=== PATIENT | female | born 1950 | race Caucasian/White ===

== ENCOUNTER 2024-08-27 16:24 | Emergency (ER) | payer MEDICARE, SELFPAY ==
[2024-08-27 16:58] VITALS: BP 125/79; PULSE 86; RESP 16; TEMP 36.8; O2SAT 100
--- NOTE | 2024-08-27 17:08 | ED.URI ---
HPI - URI/Sore Throat General Chief Complaint: Upper Respiratory Infection Stated Complaint: TIRED/BODY ACHES/SORE THROAT/COUGH Time Seen by Provider: 08/27/24 17:08 Source: patient Mode of arrival: ambulatory Limitations: no limitations History of Present Illness HPI Narrative: 74-year-old female presents with complaint of 2 days of low-grade fever, fatigue, headache. Began having mild congestion and cough started yesterday. Cough is nonproductive. Symptoms for approximately 4 days. Afebrile today. Taking ibuprofen, no other medications to treat symptoms. Called her PCP today regarding symptoms and was told to get RSV, flu and COVID testing. No chest pain or shortness breath. All systems reviewed and negative except as noted above. Related Data Home Medications Medication Instructions Recorded Confirmed azelaic acid 15 % topical gel 1 applic topical DIRECTED 08/27/24 08/27/24 escitalopram oxalate 10 mg tablet 10 mg PO DAILY 08/27/24 08/27/24 levothyroxine 100 mcg tablet 100 mcg PO DIRECTED 08/27/24 08/27/24 (Synthroid) valacyclovir 1 gram tablet 1 mg PO DIRECTED 08/27/24 08/27/24 Allergies Allergy/AdvReac Type Severity Reaction Status Date / Time ciprofloxacin Allergy Unknown Hives Verified 08/27/24 16:48 Review of Systems Review of Systems: CONSTITUTIONAL: Reports fever, chills. Denies sweats. EYES: Denies visual changes, redness, or discharge. ENT: Reports rhinorrhea, congestion, sore throat. Denies otalgia. CARDIOVASCULAR: Denies chest pain, palpitations, or edema. RESPIRATORY: Reports cough. Dyspnea. GASTROINTESTINAL: Denies abdominal pain, nausea, vomiting, or diarrhea. GENITOURINARY: Denies dysuria or hematuria. SKIN: Denies rash or itching. MUSCULOSKELETAL: Denies back pain, joint pain, or myalgia. NEUROLOGIC: Reports headache. Denies numbness, or weakness. PSYCHIATRIC: Denies anxiety or depression. All other systems reviewed are negative, except as documented in HPI. PMFSH Comments At time of signature, agree with nursing past medical, surgical, social and family history. There is no relevant family history pertinent to the presenting complaint. Exam Narrative: GENERAL: This is a well-nourished, well-developed patient, in no apparent distress. HEAD: normocephalic, atraumatic. EYES: PERRL. Sclera clear/white. Vision is grossly intact. EARS: External ears normal, auditory canals clear and without drainage, TMs normal without perforation. Hearing grossly intact. NOSE: External nose normal with clear nasal drainage, mild congestion THROAT: Mucous membranes moist, erythema with postnasal drainage. NECK: Neck supple, non-tender without lymphadenopathy, masses or thyromegaly. CARDIOVASCULAR: Regular rate and rhythm without murmurs, gallops, or rubs. RESPIRATORY: Clear to auscultation. Breath sounds equal bilaterally. No wheezes, rales, or rhonchi. SKIN: warm, Dry, intact with no suspicious lesions or rash, good texture and turgor. NEURO: awake, alert, and oriented to person, place and time. There were no obvious focal neurologic abnormalities. EXTREMITIES: No joint tenderness, effusion, or edema noted. Course Course Level of Care: Express Care Visit Vital Signs Vital signs: Vital Signs Temperature 36.8 C 08/27/24 16:58 Pulse Rate 86 08/27/24 16:58 Respiratory Rate 16 08/27/24 16:58 Blood Pressure 125/79 08/27/24 16:58 Pulse Oximetry 100 08/27/24 16:58 Oxygen Delivery Room Air 08/27/24 16:58 Temperature 36.8 C 08/27/24 16:58 Pulse Rate 86 08/27/24 16:58 Respiratory Rate 16 08/27/24 16:58 Blood Pressure 125/79 08/27/24 16:58 Pulse Oximetry 100 08/27/24 16:58 Oxygen Delivery Room Air 08/27/24 16:58 Reviewed MDM - URI/Sore Throat MDM Narrative Medical decision making narrative: Negative strep, COVID and influenza. RSV PCR ordered. Lungs clear to auscultation. Patient well-appearing, nontoxic. Explain to patient that symptoms are viral. Take [id number] medications to treat symptoms. Patient is aware of diagnosis, understands and agrees to treatment plan. Anticipatory guidance given. Patient agrees to follow-up as directed and is aware of reasons to seek care at the emergency department. Portions of this record may have been created with voice recognition software Differential Diagnosis Differential diagnosis: Likely upper respiratory infection, sinusitis, viral infection, influenza and pharyngitis Discharge Plan Discharge Clinical Impression: Viral upper respiratory tract infection with cough Patient Disposition: Home, Self-Care Condition: Stable Instructions: Upper Respiratory Infection (ED) Additional Instructions: Your COVID, influenza and strep test were negative today. A strep culture was ordered and results will take 24-48 hours. If your strep culture is positive we will call you at that time and prescribed an antibiotic. Your RSV test was sent out and will take 24 to 48 hours. Your symptoms are viral and may last 10-14 days. Taking ajjq-eiu-bplwers medication to treat her symptoms such as DayQuil NyQuil cold and flu. Drink at least 64 oz of water a day. Drink hot tea with honey to soothe throat and treat cough. Place cool mist humidifier in bedroom where you sleep. Follow-up with your primary care physician if symptoms are not improving. Prescriptions: No Action valacyclovir 1 gram tablet 1 mg PO DIRECTED levothyroxine [Synthroid] 100 mcg tablet 100 mcg PO DIRECTED escitalopram oxalate 10 mg tablet 10 mg PO DAILY azelaic acid 15 % gel 1 applic TOPICAL DIRECTED Follow-up/Referrals: Jorge L,Beba Leon [Other] Time of Disposition: 17:17
[2024-08-27 17:34] LABS: EDCOVIDSCREEN Negative (Negative); EDINFLUASCREEN Negative (Negative); EDINFLUBSCREEN Negative (Negative); EDSTREPNEGPOS1 Negative (Negative)
[2024-08-27 19:55] LABS: RSV RNA, RT-PCR Negative (Negative)
== END 2024-08-27 17:22 | disposition home or self-care (01) ==
PROVIDERS: Emergency Provider Nurse Practitioner Family
DX: J06.9 Acute upper respiratory infection, unspecified (principal); R05.9 Cough, unspecified; Z20.822 Contact with and (suspected) exposure to COVID-19
CPT/HCPCS: 87081; 87426; 87634; 87804; 87880; 99203; G0463

== ENCOUNTER 2024-09-04 08:55 | Emergency (ER) | payer MEDICARE, SELFPAY ==
[2024-09-04] VITALS (7 sets, daily range): BP systolic 101–143; BP diastolic 75–84; PULSE 67–75; RESP 14–18; TEMP 36.3–36.8; O2SAT 99–100
--- NOTE | ~2024-09-04 | CT_ITS ---
EXAMINATION: CT chest abdomen pelvis w con DATE: 09/04/2024 12:48 INDICATION: 2 weeks of chest pain, respiratory symptoms and urinary symptoms TECHNIQUE: Computed tomography (CT) of the chest, abdomen, and pelvis was performed with 100 mL Omnip aque-350 intravenous contrast. Automated exposure control and iterative reconstruction technique were employed. The dose-length product was 441.99 mGy-cm. COMPARISON: None FINDINGS: CHEST CT: Minimal dependent atelectasis in the right upper and bilateral lower lobes. No pneumonia, pulmonary e kevan, pleural effusion or pneumothorax. Heart size is normal. No pericardial effusion. Thoracic aorta is normal in caliber with no dissection. No pathologically enlarged thoracic lymphadenopathy. Small sliding-type hiatal hernia. Moderate thoracic spondylosis. ABDOMEN/PELVIS CT: 8 mm flash filling hemangioma at segment IVb of the liver. Gallbladder, spleen, pancreas, bilateral a drenal glands and kidneys are normal. Moderate amount of stool scattered throughout the colon. Small bowel and appendix are normal. Bladder, uterus and bilateral adnexa are unremarkable. Very small amou nt of likely physiologic free fluid in the cul-de-sac. No abscess or free intraperitoneal gas. Mild t o moderate lumbar spondylosis. IMPRESSION: 1. No acute cardiopulmonary disease. 2. Very small amount of likely physiologic free fluid in the cul-de-sac. No acute intra-abdominal/pel kim process. 2. Small sliding-type hiatal hernia. Reviewed, dictated and finalized at location A. STER OR DAMAGE CONTROL SPECIALIST IMPRESSION: 1. No acute cardiopulmonary disease. 2. Very small amount of likely physiologic free fluid in the cul-de-sac. No acu te intra-abdominal/pelvic process. 2. Small sliding-type hiatal hernia.
--- NOTE | ~2024-09-04 | XR_ITS ---
Clinical Indication: Chest pain PA and lateral views of the chest: Comparison: 11/26/2015 Findings: The lungs are clear, without evidence of focal consolidation or pleural effusion. Cardiome diastinal silhouette is within normal limits. Bones and soft tissues are unremarkable. Impression: Normal chest. Reviewed, dictated and finalized at location . EMIC ADMINISTRATOR Impression: Normal chest.
--- NOTE | 2024-09-04 08:58 | ECG_ITS ---
Test Date: 2024-09-04 09:04:19 Measurements Intervals Picher Rate: 69 P: 44 MO: 116 QRS: 38 QRSD: 97 T: 33 QT: 377 QTc: 405 Interpretive Statements SINUS RHYTHM WITH SHORT MO INTERVAL No previous ECG available for comparison Electronically Signed On 09-04-2024 15:27:06 [employer] by Fred Valles M.D.
[2024-09-04 09:16] LABS: Basophils Percent Auto 0.2 % (0.2-1.2); Eosinophils Percent Auto 0.1 % (0-4.4); Hematocrit 38.5 % (37.0-47.0); Hemoglobin 12.7 g/dL (12.0-15.0); Immature Granulocyte Absolute 0.06 K/mm3 (0.00-0.031); Immature Granulocyte Percent A 0.5 % (0-0.5); Lymphocytes Absolute Auto 1.76 K/mm3 (0.9-3.2); Lymphocytes Percent Auto 14.2 % (18.3-44.2); Mean Corpuscular Hemoglobin 29.1 pg (26-34); Mean Corpuscular Volume 88.3 fl (80-100); Mean Platelet Volume 9.4 fl (7.4-10.4); Monocytes Absolute Auto 1.1 K/mm3 (0.1-0.6); Monocytes Percent Auto 8.7 % (2.6-8.5); Neutrophils Absolute Auto 9.5 K/mm3 (1.3-6.7); Neutrophils Percent Auto 76.3 % (45.5-73.1); Platelet Count Result 289 k/mm3 (150-375); Red Blood Count 4.36 M/mm3 (4.2-5.4); Red Cell Distribution Width 13.2 % (11.5-14.5); White Blood Count 12.4 K/mm3 (4.5-10.0)
--- NOTE | 2024-09-04 09:22 | ED_ITS ---
HPI - General Adult General Chief complaint: Unspecified Stated complaint: face is puffy and red Time Seen by Provider: 09/04/24 09:13 History of Present Illness HPI narrative: Patient is a 74-year-old female who presents to the ER with a 2 week history of being sick. She reports she has gone to urgent care twice during that time due to cough, fatigue, and mild chest tightness. Patient was put on doxycycline and a steroid 2 days ago by the provider at urgent care. This m orning patient woke up with a red puffy face and jaw pain. Patient reports she had a history of a thyroidectomy in 1999 and takes medication daily. Her only other medical history is high blood pressure and depression. Patient denies shortness of breath, fevers, urinary symptoms. Related Data Home Medications Medication Instructions Recorded Confirmed azelaic acid 15 % topical gel 1 applic topical DIRECTED 08/27/24 08/27/24 escitalopram oxalate 10 mg tablet 10 mg PO DAILY 08/27/24 08/27/24 levothyroxine 100 mcg tablet 100 mcg PO DIRECTED 08/27/24 08/27/24 (Synthroid) valacyclovir 1 gram tablet 1 mg PO DIRECTED 08/27/24 08/27/24 Allergies Allergy/AdvReac Type Severity Reaction Status Date / Time ciprofloxacin Allergy Unknown Hives Verified 09/04/24 10:52 Review of Systems Review of Systems: All systems reviewed & are unremarkable except as noted in HPI and below Exam Narrative: GENERAL: Well appearing, well-nourished, non-toxic, in no acute distress. HEAD: Normocephalic, atraumatic. NECK: Supple. No adenopathy, no masses. RESPIRATORY: Airway patent, respirations nonlabored. Clear to auscultation miracle aterally, no rales, rhonchi, wheezing. CARDIOVASCULAR: Regular rate and rhythm without murmurs, rubs, or gallops. Peripheral pulses 2+ and equal bilaterally. ABDOMINAL: Soft, nontender, nondistended, no hepatosplenomegaly. Normoactive BS. MUSCULOSKELETAL: Moves all extremities. Strength/ROM intact without gross deformities. SKIN: Warm, dry, normal color. No rashes. NEURO: A&O X3. Speech clear. Cranial nerves II-XII grossly intact. No ataxic movements. PSYCHIATRIC: Appropriate mood and affect. Normal interaction. Course Vital Signs Vital signs: Vital Signs Temperature 36.3 C L 09/04/24 09:00 Pulse Rate 75 09/04/24 09:00 Respiratory Rate 18 09/04/24 09:00 Blood Pressure 101/83 09/04/24 09:00 Pulse Oximetry 100 09/04/24 09:00 Oxygen Delivery Room Air 09/04/24 09:00 Temperature 36.8 C 09/04/24 14:15 Pulse Rate 70 09/04/24 14:15 Respiratory Rate 15 09/04/24 14:15 Blood Pressure 123/75 09/04/24 14:15 Pulse Oximetry 100 09/04/24 14:15 Oxygen Delivery Room Air 09/04/24 09:00 Medical Decision Making MDM Narrative Medical decision making narrative: Patient is a 74-year-old female who presents to the ER with a 2 week history of being sick. She reports she has gone to urgent care twice during that time due to cough, fatigue, and mild chest tightness. Patient was put on doxycycline and a steroid 2 days ago by the provider at urgent care. This morning patient woke up with a red puffy face and jaw pain. Patient reports she had a history of a thyroidectomy in 1999 and takes medication daily. Her only other medical history is high blood pressure and depression. Patient denies shortness of breath, fevers, urinary symptoms. Labs Ordered: CBC, CMP, d. dimer, magnesium, lactic acid, BNP, urinalysis, blood cultures, troponin Imaging Ordered: CT chest/abdomen/pelvis with contrast Results: Pt's CBC indicated a white blood cell count of 12.4. Her CMP indicated a BUN of 34, creatinine of 1.6, GFR 32. Patient's BNP was 1030. Her urinalysis indicated 1+ blood, 1+ leukocytes, white blood cells of 6 to 10. Her chest x-ray indicated The lungs are clear, without evidence of focal consolidation or pleural effusion. Cardiomediastinal silhouette is within normal limits. Bones and soft tissues are unremarkable. Her CT scan indicated 1. No acute cardiopulmonary disease. 2. Very small amount of likely physiologic free fluid in the cul-de-sac. No acute intra-abdominal/pelvic process. 3. Small sliding- type hiatal hernia. Diagnosis: Urinary tract infection with acute kidney injury, mild dehydration Patient Education/Shared MDM: Results of blood work and imaging shared with patient. Risks and benefits of GUS shared with patient. She was in agreement for plan to discharge home and follow-up with her primary care provider. Her antibiotics will be changed from doxycycline to a different oral antibiotic. Patient educated extensively on the importance of staying hydrated upon dis charge home. She was also encouraged to follow-up with her PCP regarding her elevated BNP and GUS. Once again, patient verbalized understanding and is in agreement plan. Differential Diagnosis Differential Diagnosis: acute kidney injury, pyelonephritis, urinary tract infection, dehydration Vital Signs Vital Signs: Vital Signs Temperature 36.3 C L 09/04/24 09:00 Pulse Rate 75 09/04/24 09:00 Respiratory Rate 18 09/04/24 09:00 Blood Pressure 101/83 09/04/24 09:00 Pulse Oximetry 100 09/04/24 09:00 Oxygen Delivery Room Air 09/04/24 09:00 Temperature 36.8 C 09/04/24 14:15 Pulse Rate 70 09/04/24 14:15 Respiratory Rate 15 09/04/24 14:15 Blood Pressure 123/75 09/04/24 14:15 Pulse Oximetry 100 09/04/24 14:15 Oxygen Delivery Room Air 09/04/24 09:00 Lab Data Lab results reviewed: Yes I reviewed the patient's lab results. 09/04/24 09:06 09/04/24 09:06 Labs: Lab Results 09/04/24 09/04/24 09/04/24 Range/Units 09:06 11:37 11:38 WBC 12.4 H (4.5-10.0) K/mm3 RBC 4.36 (4.2-5.4) M/mm3 Hgb 12.7 (12.0-15.0) g/dL Hct 38.5 (37.0-47.0) % MCV 88.3 (80-100) fl MCH 29.1 (26-34) pg MCHC 33.0 (32-36) g/dl RDW 13.2 (11.5-14.5) % Plt Count 289 (150-375) k/mm3 MPV 9.4 (7.4-10.4) fl Immature Gran % (Auto) 0.5 (0-0.5) % Neut % (Auto) 76.3 H (45.5-73.1) % Lymph % (Auto) 14.2 L (18.3-44.2) % [place] % (Auto) 8.7 H (2.6-8.5) % Eos % (Auto) 0.1 (0-4.4) % Baso % (Auto) 0.2 (0.2-1.2) % Lymph # (Auto) 1.76 (0.9-3.2) K/mm3 [place] # (Auto) 1.1 H (0.1-0.6) K/mm3 Eos # (Auto) 0.0 (0-0.3) K/mm3 Baso # (Auto) 0.0 (0.0-0.1) K/mm3 Abs Immat Gran (auto) 0.06 H (0.00-0.031) K/mm3 Absolute Neuts (auto) 9.5 H (1.3-6.7) K/mm3 Absolute Nucleated RBC 0.000 (0.0-0.012) K/mm3 Nucleated RBC % 0.0 (0.0-0.2) % PT 12.1 (11.1-14.7) Seconds INR 0.9 APTT 23.8 (22.3-36.8) Seconds D-Dimer < 0.27 (<0.48) ug/mL Sodium 138 (137-145) mmol/L Potassium 3.7 (3.4-5.0) mmol/L Chloride 103 (98-107) mmol/L Carbon Dioxide 30 (22-30) mmol/L Anion Gap 5 (4-12) mmol/L BUN 34 H (7-17) mg/dL Creatinine 1.60 H (0.7-1.0) mg/dL Estim Creat Clear Calc Not Reportable Estimated GFR 32 L (59 - ) Glucose 90 (65-110) mg/dL Lactic Acid 1.1 (0.7-2.0) mmol/L Calcium 9.7 (8.4-10.2) mg/dL Magnesium 2.2 (1.6-2.3) mg/dL Total Bilirubin 0.5 (0.2-1.3) mg/dL AST 34 (14-36) U/L ALT 21 (6-35) U/L Alkaline Phosphatase 72 (38-126) U/L Troponin I < 0.012 < 0.012 (0.000-0.034) ng/mL NT-Pro-B Natriuret Pep 1030 H (19.9-100) pg/mL Total Protein 7.0 (6.3-8.2) g/dL Albumin 4.3 (3.5-5.1) g/dL Lipase 96 (23-300) U/L Urine Color Yellow (Yellow) Urine Appearance Clear (Clear) Urine pH 5.5 (5.0-9.0) Ur Specific [place] 1.013 (1.001-1.035) Urine Protein Negative (Negative) mg/dL Urine Glucose (UA) Negative (Negative) mg/dL Urine Ketones Negative (Negative) mg/dL Ur Blood (Man) 1+ H (Negative) Urine Nitrate Negative (Negative) Urine Bilirubin Negative (Negative) Urine Urobilinogen 0.2 (<2.0) mg/dL Leukocyte Esterase Rfl 1+ H (Negative) CLARISSA/UL Urine RBC 0-2 (0-2) /hpf Urine WBC 6-10 H (0-3) /hpf Ur Squamous Epith Cells Few (Few) /hpf Urine Bacteria None seen /hpf Urine Casts 3-5 Imaging Data Attestation: I personally reviewed and interpreted this imaging study as follows: Radiologist's impression: Impressions Chest X-Ray 09/04/24 10:06 Impression: Normal chest. Chest/Abdomen/Pelvis CT 09/04/24 12:57 IMPRESSION: 1. No acute cardiopulmonary disease. 2. Very small amount of likely physiologic free fluid in the cul-de-sac. No acute intra-abdominal/pelvic process. 2. Small sliding-type hiatal hernia. Discharge Plan Discharge Clinical Impression: Urinary tract infection, Acute kidney injury, Dehydration, mild Patient Disposition: Home, Self-Care Condition: Stable Instructions: Antibiotic Form, Dehydration (ED), Acute Kidney Injury (DC), Urinary Tract Infection in Women (ED) Additional Instructions: Patient is in agreement with current treatment plan. All questions answered. Vital signs stable at time of discharge. Please return to the ER with an worsening symptoms. Follow-up with primary care provider in the next 2-3 days. Take all medications as prescribed. Prescriptions: New sulfamethoxazole-trimethoprim [Bactrim DS] 800-160 mg tablet 1 tablet PO Q12H 5 Days Qty: 10 0RF No Action valacyclovir 1 gram tablet 1 mg PO DIRECTED levothyroxine [Synthroid] 100 mcg tablet 100 mcg PO DIRECTED escitalopram oxalate 10 mg tablet 10 mg PO DAILY azelaic acid 15 % gel 1 applic TOPICAL DIRECTED Follow-up/Referrals: PHYSICIAN NOT ON STAFF,NONSTAFF [Non-Staff] - Time of Disposition: 15:04
[2024-09-04 09:28] LABS: Alanine Aminotransferase 21 U/L (6-35); Albumin Level 4.3 g/dL (3.5-5.1); Alkaline Phosphatase 72 U/L (38-126); Anion Gap 5 mmol/L (4-12); Aspartate Amino Transferase 34 U/L (14-36); Bilirubin,Total 0.5 mg/dL (0.2-1.3); Blood Urea Nitrogen 34 mg/dL (7-17); Calcium 9.7 mg/dL (8.4-10.2); Carbon Dioxide 30 mmol/L (22-30); Chloride 103 mmol/L (98-107); Estimated Glomerular Filt Rate 32; Glucose 90 mg/dL (65-110); Lipase 96 U/L (23-300); Potassium 3.7 mmol/L (3.4-5.0); Sodium 138 mmol/L (137-145)
[2024-09-04 09:29] LABS: INR 0.9; Prothrombin Time 12.1 Seconds (11.1-14.7)
[2024-09-04 09:30] LABS: Partial Thromboplastin Time 23.8 Seconds (22.3-36.8)
[2024-09-04 09:40] LABS: Troponin I < 0.012 ng/mL (0.000-0.034)
[2024-09-04] MEDS: ASPIRIN 81 MG CHEWABLE TABLET 324 MG PO (10:48)
[2024-09-04] MEDS: methylPREDNISolone SOD SUCC 125 MG VIAL IV PUSH (11:55)
[2024-09-04] MEDS: diphenhydrAMINE HCl INJ 50 MG/ML VIAL 25 MG IV PUSH (11:56)
[2024-09-04] MEDS: SODIUM CHLORIDE 0.9% IV 1,000 ML 999 ML IV CONT (11:56)
[2024-09-04 11:58] LABS: Add Urine Microscopic? YES; Appearance Urine Clear (Clear); Bacteria Urine None Seen /hpf; Bilirubin Urine Negative (Negative); Blood Urine 1+ (Negative); Color Urine Yellow (Yellow); Glucose Urine UA Negative (Negative); Ketones Urine Negative (Negative); Lactic Acid Reflex 1.1 mmol/L (0.7-2.0); Leukocyte Esterase Ur 1+ LEU/UL (Negative); Magnesium 2.2 mg/dL (1.6-2.3); Nitrate Urine Negative (Negative); Protein Urine Negative (Negative); RBC Urine 0-2 /hpf (0-2); Specific Grav Ur 1.013 (1.001-1.035); Squamous Epithelial Cell Urine Few /hpf (Few); Urobilinogen Urine 0.2 mg/dL (<2.0); pH Urine 5.5 (5.0-9.0)
[2024-09-04 12:02] LABS: D Dimer < 0.27 ug/mL (<0.48)
[2024-09-04 12:07] LABS: NT Pro B Type Natriuretic Pept 1030 pg/mL (19.9-100)
[2024-09-04 12:11] LABS: Troponin I < 0.012 ng/mL (0.000-0.034)
[2024-09-04 15:25] LABS: Troponin I < 0.012 ng/mL (0.000-0.034)
== END 2024-09-04 15:23 | disposition home or self-care (01) ==
PROVIDERS: Emergency Medicine; Emergency Provider Registered Nurse
DX: N39.0 Urinary tract infection, site not specified (principal); N17.9 Acute kidney failure, unspecified; E86.0 Dehydration; I10 Essential (primary) hypertension; E89.0 Postprocedural hypothyroidism; F32.A Depression, unspecified; K44.9 Diaphragmatic hernia without obstruction or gangrene; Z79.899 Other long term (current) drug therapy
CPT/HCPCS: 36415; 71046; 71260; 74177; 80053; 81001; 83605; 83690; 83735; 83880; 84484; 85025; 85380; 85610; 85730; 87040; 87086; 93005; 96361; 96374; 96375; 99284; A9270; J1200; J2919; J7030; Q9967

== ENCOUNTER 2024-09-08 09:22 | Emergency (ER) | payer MEDICARE, SELFPAY ==
--- NOTE | ~2024-09-08 | CT_ITS ---
EXAMINATION: CT abdomen pelvis w con DATE: 09/08/2024 12:29 INDICATION: Abdominal pain. Nausea. TECHNIQUE: Computed tomography (CT) of the abdomen and pelvis was performed with 100 mL Omnipaque 350 intravenous contrast. Automated exposure control and iterative reconstruction technique were employe d. The dose-length product was 267.59 mGy-cm. COMPARISON: CT abdomen and pelvis 09/04/2024 FINDINGS: The visualized portions of lung bases demonstrate mild atelectasis. No pleural effusion. Th e heart size is normal. No pericardial effusion. The liver, gallbladder, spleen, pancreas, adrenal gl ands, and left kidney are normal. There are is a 6 mm cyst in right kidney. There are no dilated loop s of bowel. The appendix is normal. There are no pathologically enlarged lymph nodes. There is no cathy e intraperitoneal fluid. Left ovarian vein is enlarged, consistent with pelvic venous insufficiency. There is moderate lumbar spondylosis and mild thoracic spondylosis. There is a 12 mm sclerotic lesion in right sacral ala. IMPRESSION: 1. Pelvic venous insufficiency. 2. 12 mm sclerotic lesion in right sacral ala, which may be a hemangioma or metastatic disease. Consi juan bone scan. Reviewed, dictated and finalized at location A. 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 Pelvic venous insufficiency. 2. 12 mm sclerotic lesion in right sacral ala, which may be a hemangioma or met astatic disease. Consider bone scan.
--- NOTE | ~2024-09-08 | XR_ITS ---
EXAMINATION: XR abdomen/kub 1V DATE: 09/08/2024 10:27 INDICATION: Constipation. TECHNIQUE: A supine view of the abdomen on 2 radiographs was obtained. COMPARISON: CT abdomen and pelvis 09/04/2024 FINDINGS: There are no dilated loops of bowel. There is a moderate volume of stool in the colon. IMPRESSION: 1. Normal bowel gas pattern. Reviewed, dictated and finalized at location A. 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
[2024-09-08 09:25] VITALS: BP 131/70; PULSE 85; RESP 16; TEMP 36.6; O2SAT 100
[2024-09-08 09:55] LABS: Basophils Absolute Auto 0.1 K/mm3 (0.0-0.1); Eosinophils Absolute Auto 0.2 K/mm3 (0-0.3); Eosinophils Percent Auto 2.5 % (0-4.4); Hematocrit 44.2 % (37.0-47.0); Hemoglobin 14.4 g/dL (12.0-15.0); Immature Granulocyte Absolute 0.14 K/mm3 (0.00-0.031); Immature Granulocyte Percent A 1.8 % (0-0.5); Lymphocytes Absolute Auto 1.67 K/mm3 (0.9-3.2); Lymphocytes Percent Auto 21.9 % (18.3-44.2); Mean Corpuscular HGB Conc 32.6 g/dl (32-36); Mean Corpuscular Hemoglobin 28.7 pg (26-34); Mean Corpuscular Volume 88.2 fl (80-100); Mean Platelet Volume 9.2 fl (7.4-10.4); Monocytes Absolute Auto 0.8 K/mm3 (0.1-0.6); Monocytes Percent Auto 9.9 % (2.6-8.5); Neutrophils Absolute Auto 4.8 K/mm3 (1.3-6.7); Neutrophils Percent Auto 62.9 % (45.5-73.1); Platelet Count Result 397 k/mm3 (150-375); Red Blood Count 5.01 M/mm3 (4.2-5.4); Red Cell Distribution Width 13.2 % (11.5-14.5); White Blood Count 7.6 K/mm3 (4.5-10.0)
[2024-09-08 10:05] LABS: Alanine Aminotransferase 30 U/L (6-35); Albumin Level 4.9 g/dL (3.5-5.1); Alkaline Phosphatase 75 U/L (38-126); Anion Gap 6 mmol/L (4-12); Aspartate Amino Transferase 30 U/L (14-36); Bilirubin,Total 0.7 mg/dL (0.2-1.3); Blood Urea Nitrogen 12 mg/dL (7-17); Calcium 10.2 mg/dL (8.4-10.2); Carbon Dioxide 30 mmol/L (22-30); Chloride 103 mmol/L (98-107); Estimated CRCL calculation 38 ml/min; Estimated Glomerular Filt Rate 54; Glucose 100 mg/dL (65-110); Lipase 89 U/L (23-300); Potassium 4.3 mmol/L (3.4-5.0); Sodium 139 mmol/L (137-145)
--- NOTE | 2024-09-08 10:10 | PC.NURSE ---
Pt. aware that lab needs another urine sample. Pt. states she is unable to urinate at this time but will press her call light when she can.
--- NOTE | 2024-09-08 11:38 | ED_ITS ---
HPI - Abdominal Pain General Chief Complaint: Abdominal Pain Stated Complaint: abd pain Time Seen by Provider: 09/08/24 10:32 History of Present Illness HPI narrative: 74-year-old female presenting with abdominal pain and nausea. States has been going on for last several days. She has barely been able to eat anything. She also has not been able to have a normal bowel movement despite using enemas and suppositories. Recently treated for UTI. Related Data Home Medications Medication Instructions Recorded Confirmed azelaic acid 15 % topical gel 1 applic topical DIRECTED 08/27/24 08/27/24 escitalopram oxalate 10 mg tablet 10 mg PO DAILY 08/27/24 08/27/24 levothyroxine 100 mcg tablet 100 mcg PO DIRECTED 08/27/24 08/27/24 (Synthroid) valacyclovir 1 gram tablet 1 mg PO DIRECTED 08/27/24 08/27/24 Allergies Allergy/AdvReac Type Severity Reaction Status Date / Time ciprofloxacin Allergy Unknown Hives Verified 09/04/24 10:52 Review of Systems 2 Review of Systems: All systems reviewed & are unremarkable except as noted in HPI and below Exam 2 Narrative: GENERAL: Well-appearing, in no acute distress, pleasant cooperative HEAD: Normocephalic, atraumatic. EYES: PERRLA and EOMI. ENT: Mucous membranes moist. NECK: Supple. CHEST: No respiratory distress. HEART: Regular rate and rhythm ABDOMEN: Soft, mild diffuse tenderness EXTREMITIES: Normal range of motion. SKIN: Warm, dry, no rash. NEURO: No focal deficits. Alert and oriented x3. PSYCH: Normal mood and affect. Course Vital Signs Vital signs: Vital Signs Temperature 97.9 F 09/08/24 09:25 Pulse Rate 85 09/08/24 09:25 Respiratory Rate 16 09/08/24 09:25 Blood Pressure 131/70 09/08/24 09:25 Pulse Oximetry 100 09/08/24 09:25 Oxygen Delivery Room Air 09/08/24 09:25 Temperature 97.9 F 09/08/24 09:25 Pulse Rate 73 09/08/24 13:14 Respiratory Rate 16 09/08/24 13:14 Blood Pressure 125/71 09/08/24 13:14 Pulse Oximetry 99 09/08/24 13:14 Oxygen Delivery Room Air 09/08/24 09:25 MDM - Abdominal Pain MDM Narrative Medical decision making narrative: 74-year-old female presenting with abdominal pain, nausea, constipation. Vitals within normal limits. Exam remarkable for the above. Blood work is unremarkable. UA is not infected. CT abdomen pelvis without acute abnormalities. Patient with some recurrent nausea, she was given a dose of p.o. Zofran and she is now able to tolerate p.o.. She would like to go home which I think is reasonable. Will send in for Pepcid, Zofran, daily MiraLax. Recommend PCP follow-up. Appropriate return precautions given. Discharged in stable condition. Lab Data 09/08/24 09:48 09/08/24 09:48 Labs: Lab Results 09/08/24 09/08/24 Range/Units 09:48 11:39 WBC 7.6 (4.5-10.0) K/mm3 RBC 5.01 (4.2-5.4) M/mm3 Hgb 14.4 (12.0-15.0) g/dL Hct 44.2 (37.0-47.0) % MCV 88.2 (80-100) fl MCH 28.7 (26-34) pg MCHC 32.6 (32-36) g/dl RDW 13.2 (11.5-14.5) % Plt Count 397 H (150-375) k/mm3 MPV 9.2 (7.4-10.4) fl Immature Gran % (Auto) 1.8 H (0-0.5) % Neut % (Auto) 62.9 (45.5-73.1) % Lymph % (Auto) 21.9 (18.3-44.2) % [place] % (Auto) 9.9 H (2.6-8.5) % Eos % (Auto) 2.5 (0-4.4) % Baso % (Auto) 1.0 (0.2-1.2) % Lymph # (Auto) 1.67 (0.9-3.2) K/mm3 [place] # (Auto) 0.8 H (0.1-0.6) K/mm3 Eos # (Auto) 0.2 (0-0.3) K/mm3 Baso # (Auto) 0.1 (0.0-0.1) K/mm3 Abs Immat Gran (auto) 0.14 H (0.00-0.031) K/mm3 Absolute Neuts (auto) 4.8 (1.3-6.7) K/mm3 Absolute Nucleated RBC 0.000 (0.0-0.012) K/mm3 Nucleated RBC % 0.0 (0.0-0.2) % Sodium 139 (137-145) mmol/L Potassium 4.3 (3.4-5.0) mmol/L Chloride 103 (98-107) mmol/L Carbon Dioxide 30 (22-30) mmol/L Anion Gap 6 (4-12) mmol/L BUN 12 D (7-17) mg/dL Creatinine 1.00 (0.7-1.0) mg/dL Estim Creat Clear Calc 38 ml/min Estimated GFR 54 L (59 - ) Glucose 100 (65-110) mg/dL Calcium 10.2 (8.4-10.2) mg/dL Total Bilirubin 0.7 (0.2-1.3) mg/dL AST 30 (14-36) U/L ALT 30 (6-35) U/L Alkaline Phosphatase 75 (38-126) U/L Total Protein 8.0 (6.3-8.2) g/dL Albumin 4.9 (3.5-5.1) g/dL Lipase 89 (23-300) U/L Urine Color Yellow (Yellow) Urine Appearance Cloudy H (Clear) Urine pH 7.5 (5.0-9.0) Ur Specific [place] 1.015 (1.001-1.035) Urine Protein Negative (Negative) mg/dL Urine Glucose (UA) Negative (Negative) mg/dL Urine Ketones Negative (Negative) mg/dL Ur Blood (Man) 1+ H (Negative) Urine Nitrate Negative (Negative) Urine Bilirubin Negative (Negative) Urine Urobilinogen 0.2 (<2.0) mg/dL Leukocyte Esterase Rfl Negative (Negative) CLARISSA/UL Urine RBC 11-20 H (0-2) /hpf Urine WBC 0-5 (0-3) /hpf Ur Squamous Epith Cells None seen (Few) /hpf Urine Bacteria None seen /hpf Urine Casts 0-2 Imaging Data Radiologist's impression: ITS Impressions Abdomen X-Ray 09/08/24 10:30 IMPRESSION: 1. Normal bowel gas pattern. Abdomen/Pelvis CT 09/08/24 12:35 IMPRESSION: 1. Pelvic venous insufficiency. 2. 12 mm sclerotic lesion in right sacral ala, which may be a hemangioma or metastatic disease. Consider bone scan. Critical Care Time Critical Care Time Critical Care Time: No Discharge Plan Discharge Clinical Impression: Abdominal pain, Nausea & vomiting Patient Disposition: Still a Patient Condition: Stable Instructions: Antibiotic Form, Abdominal Pain (ED) Additional Instructions: We have started you on Pepcid for your abdominal pain as well as Zofran to be used as needed for nausea. You may use the MiraLax twice a day or as needed until you are having a normal number of bowel movements. Follow-up closely with your PCP. If your symptoms worsen or other concerning symptoms arise, please return to the ER. Prescriptions: New famotidine [Pepcid] 20 mg tablet 20 mg PO DAILY Qty: 14 0RF ondansetron 4 mg tablet,disintegrating 4 mg PO Q8H PRN (Reason: nausea and vomiting) Qty: 14 0RF polyethylene glycol 3350 [Miralax] 17 gram/dose powder 17 g PO BID Qty: 238 0RF No Action valacyclovir 1 gram tablet 1 mg PO DIRECTED levothyroxine [Synthroid] 100 mcg tablet 100 mcg PO DIRECTED escitalopram oxalate 10 mg tablet 10 mg PO DAILY azelaic acid 15 % gel 1 applic TOPICAL DIRECTED sulfamethoxazole-trimethoprim [Bactrim DS] 800-160 mg tablet 1 tablet PO Q12H 5 Days Qty: 10 0RF Follow-up/Referrals: PHYSICIAN NOT ON STAFF,NONSTAFF [Primary Care Provider] -
[2024-09-08] MEDS: ONDANSETRON INJ 4 MG/2 ML VIAL IV PUSH (11:53)
[2024-09-08] MEDS: SODIUM CHLORIDE 0.9% IV 1,000 ML 999 ML IV CONT (11:53)
[2024-09-08 11:54] LABS: Add Urine Microscopic? YES; Appearance Urine Cloudy (Clear); Bacteria Urine None Seen /hpf; Bilirubin Urine Negative (Negative); Blood Urine 1+ (Negative); Color Urine Yellow (Yellow); Glucose Urine UA Negative (Negative); Ketones Urine Negative (Negative); Leukocyte Esterase Ur Negative LEU/UL (Negative); Nitrate Urine Negative (Negative); Non Pathogenic Casts 0-2; Protein Urine Negative (Negative); Specific Grav Ur 1.015 (1.001-1.035); Squamous Epithelial Cell Urine None Seen /hpf (Few); Urobilinogen Urine 0.2 mg/dL (<2.0); WBC Urine 0-5 /hpf (0-3); pH Urine 7.5 (5.0-9.0)
--- NOTE | 2024-09-08 12:07 | PC.NURSE ---
ultrasound called at [phone] to ask if they could come do a bedside ultrasound in ED or if they needed to reschedule the patient. US will be coming down to do the bedside ultrasound.
[2024-09-08 13:14] VITALS: BP 125/71; PULSE 73; RESP 16; O2SAT 99
[2024-09-08] MEDS: FAMOTIDINE 20 MG/2 ML VIAL IV PUSH (15:48)
[2024-09-08] MEDS: ONDANSETRON HCL ODT 4 MG TABLET PO (15:48)
--- NOTE | 2024-09-08 16:18 | PC.NURSE ---
This RN went into pt. room to complete a fleet enema. Pt. states I don't really think I need one anymore. I can just do it at home. I would like to try some food to make sure I don't vomit before I go home. MD Smart notified and okay with plan. Pt. given food and drink. Will reassess tolerance of PO intake.
--- NOTE | 2024-09-08 16:40 | PC.NURSE ---
Pt. able to tolerate oral intake without vomiting.
[2024-09-08 16:45] VITALS: BP 135/80; PULSE 67; RESP 16; O2SAT 99
== END 2024-09-08 16:46 | disposition home or self-care (01) ==
PROVIDERS: Student in an Organized Health Care Education/Training Program; Emergency Provider Emergency Medicine
DX: R10.9 Unspecified abdominal pain (principal); R11.2 Nausea with vomiting, unspecified; I87.2 Venous insufficiency (chronic) (peripheral); M89.9 Disorder of bone, unspecified
CPT/HCPCS: 36415; 74018; 74177; 80053; 81001; 83690; 85025; 96361; 96374; 96375; 99284; A9270; J2405; J7030; Q9967